=== PATIENT | female | born 1980 | race Caucasian/White ===

== ENCOUNTER 2017-02-14 16:35 | Emergency (ER) | payer OTHER ==
[~2017-02-14] VITALS: Ht 152.4 cm; Wt 73.9 kg
[2017-02-14 18:33] LABS: BASOPHIL % 0.4 % (0-2); PLATELET COUNT 224 x10^3mcL (130-400); RED CELL DISTRIBUTION WIDTH 13.3 % (11.5-14.5)
[2017-02-14 18:36] LABS: UA SPECIFIC GRAVITY 1.025 (1.005-1.035); microscopic required? YES; urine erythrocyte TRACE (NEGATIVE)
[2017-02-14 20:19] VITALS: BP 138/72
== END 2017-02-14 20:20 | disposition home or self-care (01) ==
LOC: ED 16:35
PROVIDERS: Emergency Medicine
DX: O26.891 Other specified pregnancy related conditions, first trimester (principal); Z3A.08 8 weeks gestation of pregnancy; R10.31 Right lower quadrant pain; N39.0 Urinary tract infection, site not specified